=== PATIENT | female | born 1995 | race Caucasian/White ===

== ENCOUNTER 2017-04-02 17:45 | Emergency (ER) | payer SELFPAY ==
[2017-04-02 19:26] VITALS: BMI 23.3
[2017-04-02 20:15] LABS: RBC URINE 3 /hpf (0-3); URINE BACTERIA OCC (<OCC); URINE BILIRUBIN NEGATIVE (NEGATIVE); URINE BLOOD NEGATIVE (NEGATIVE); URINE COLOR YELLOW (YELLOW); URINE GLUCOSE (UA) NEG (Normal); URINE KETONE NEGATIVE (NEGATIVE); URINE LEUKOCYTE ESTERASE SMALL Leu/uL (Negative); URINE PROTEIN NEGATIVE (NEGATIVE); URINE UROBILINOGEN 0.2-1.0 mg/dL (0.2-1.0); WBC URINE 6 /hpf (0-5)
--- NOTE | 2017-04-02 23:06 | OBHP ---
Datetime: 04/02/2017 19:09 IP Adm Impression: , intrauterine ; No Active Labor IP Chief Complaint Other: Abdominal discomfort IP Admit Plan: Observation/Evaluation Admit Comment, IP Provider: 21 yo female at 28.3w gestation with EVELIN on 06/22/16 presents with complaints of lower abdominal "tightness" starting last night. Pt states she felt her lower abdomen f elt tight last night and lasted for 2 hours resolving spotaneosly. She felt the tightness again this morning but has not felt it since. Patient rates discomfort 2/10 in severity, denies n/v/d, back pain , dysuria, fever, vaginal bleeding, loss of fluid, contractions. Reports good movement. Pt stat es she traveled here from [facility] 20 days ago and is planning to have her baby in [facility]. Care: Recieving care from her MD in [facility]. care labs unremarkable. Last U/S reports appriopriate growth and anatomy, BPP 8/8, normal CORY, cervical canal length normal and closed. ObsHx: denies Medical Hx: denies Surgical Hx: denies Meds: PNV Allergies: Denies Triage Vital Signs: 108/64, 98 FHR: 140's, moderate variability, accelerations Physical Exam: General: Appears comfortable, NAD Cardio: RRR, no murmurs Resp: Clear to asucultation BL Abdomen: Gravid, NT, no CVA tenderness Extremities: No pedal edema Assessment: IUP at 28.3 wks gestation, no signs of active labor presenting with mild lower abdomin al discomfort. Currently denies any symptoms. Reassuring FHT and maternal vital signs stable. Plan: Observe, continuous monitoring and maternal vital signs. f/u Urinaylsis Discussed case with OB Attending Dr. Vinh Harp, PGY1 Addendum: I saw and examined patient presentation. Both maternal and well-being reassuring at this rommel e. Patient discharged home with labor precautions. All patient questions answered. Pelvic Type - PN: Adequate Extremities - PN: Normal Abdomen - PN: Normal Back - PN: Normal Breast - PN: Normal Lungs - PN: Normal Heart - PN: Normal Thyroid - PN: Normal Neurologic - PN: Normal HEENT - PN: Normal General - PN: Normal Contraction Comments Provider: none EGA AdmitDate IP: 28.3 Vital Signs Provider: Reviewed; Within Normal Limits IP Chief Complaint: Other Dilatation, Provider: 0 Effacement, Provider: 0 Station, Provider: -4 Genitourinary Exam: Normal DTRs - PN: Normal
[2017-04-03 03:22] VITALS: BP 105/57; PULSE 111; RESP 18; TEMP 98
== END 2017-04-02 22:50 | disposition home or self-care (01) ==
LOC: H.EROB2 17:45
DX: O47.03 False labor before 37 completed weeks of gestation, third trimester (principal); Z3A.28 28 weeks gestation of pregnancy; O26.93 Pregnancy related conditions, unspecified, third trimester; R10.2 Pelvic and perineal pain

== ENCOUNTER 2017-04-16 12:56 | Emergency (ER) | payer SELFPAY ==
[2017-04-16 13:31] VITALS: BMI 23.1
[2017-04-16] MEDS ORDERED: Lactated Ringer's 1,000 ML IV SCH (14:30)
[2017-04-16 14:46] LABS: HEMATOCRIT 35.9 % (34.0-47.0); MEAN CELL VOLUME 80.9 fl (81.0-99.0); MEAN CORPUSCULAR HEMOGLOBIN 27.2 pg (27.0-31.0); MEAN CORPUSCULAR HGB CONC 33.6 g/dL (33.0-37.0); RED CELL DISTRIBUTION WIDTH 15.2 % (11.5-14.5); WHITE BLOOD COUNT 8.6 K/uL (4.8-10.8)
[2017-04-16 15:03] LABS: ALKALINE PHOSPHATASE 119 U/L (38-126); ALT/SGPT 38 U/L (9-52); AST/SGOT 25 U/L (14-36); BILIRUBIN,TOTAL 0.3 mg/dl (0.2-1.3); BLOOD UREA NITROGEN 3 mg/dl (7-17); CALCIUM 9.5 mg/dL (8.4-10.2); CARBON DIOXIDE 24 mmol/L (22-30); CHLORIDE 104 mmol/L (98-107); GFR AFRICAN-AMERICAN > 60; GLUCOSE,RANDOM 88 mg/dL (65-105); POTASSIUM 4.1 MMOL/L (3.6-5.0); SODIUM 138 mmol/l (132-148); TOTAL PROTEIN 7.5 G/DL (6.3-8.2)
[2017-04-16 15:04] LABS: ALB/GLOB RATIO 1.1 (1.0-2.1)
[2017-04-16 20:02] VITALS: BP 111/69; PULSE 98; RESP 16; TEMP 98.2; O2SAT 100
--- NOTE | 2017-04-17 02:44 | OBDCSUM ---
Datetime: 04/16/2017 15:35 Discharged to, Provider: Home Follow up at, Provider: Disch Instr Activity: Normal activity Disch Instr Diet: Regular Discharge Time: 04/16/2017 15:35 Follow up in weeks, Provider: 04/25/2017 Disch Activity Restrictions: No sexual activity; Nothing in vagina - [place], tampons, douche Discharge Comment, Provider: Bridgette nails Discharge Diagnosis Prov Other: Nauea vomiting in preg 31w
--- NOTE | 2017-04-17 02:45 | OBHP ---
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 PAtient states she has had nausea and vomiting throughout he r , and was taking a medication she was given in [place]: doxylamine succinate-pyridoxine hydr ochloride (generic for Diclegis), which has helped allerviate her symptoms. She ran out of the medica tion about 1 week ago, and has had persistent nausea and vomiting since 3 days ago. She reports good movement. Denies vaginal bleeding, contractions, or continuous loss of fluid. Patient is from [place], started care there, then continued care in [facility] before coming to the [place]. She has some u/s reports with her which were used to calculate her GA. Report from 02/24 states anterior placenta, no previa. Has first appt at [facility] on 04/25. OBHX: none, this is her first Med hx: denies Surg hx: denies Surg hx: denies Social hx: denies tobacco, alcohol, drug use Meds: PNV, generic for Diclegis Allergies: NKDA ROS: denies chest pain, shortness of breath, urinary symptoms. Has nausea, vomitting, occasional h eadaches. PE: Gen: alert, oriented CV: RRR Resp: normal respiratory effort Abdomen: gravid Extremities: no edema Assessment: 21 yo at 31w GA with vomiting during . No signs of labor. Plan: 1 liter LR bolus, CMP, CBC, 4mg zofran Reassess after labwork Re-evaluated at 3 pm CBC, CMP wnl Plan: D/c home with prescription for zofran. labor precautions. Encourage to attend schedu led visit at [facility]. Case discussed with Dr. Quintin kitchenPGY1. OB Hospitalist note: With PGY1, I saw and examined this patient...agree with note. MAHNDO Pelvic Type - PN: Not Done Extremities - PN: Normal Abdomen - PN: Normal Back - PN: Normal Breast - PN: Not Done Lungs - PN: Normal Heart - PN: Normal Thyroid - PN: Not Done Neurologic - PN: Normal HEENT - PN: Normal General - PN: Normal FHR - Baseline A Provider: 160 Gestation - Est Wks by US: 31.0 EGA AdmitDate IP: 30.3 Vital Signs Provider: Reviewed; Within Normal Limits IP Chief Complaint: Other NICHD Variability Prov Fetus A: Moderate 6-25bpm NICHD Accel Fetus A IP Provider: [id number] FHR Category Provider Fetus A: Category I NICHD Decel Fetus A IP Provider: None Genitourinary Exam: Not Done DTRs - PN: Not Done
== END 2017-04-16 15:35 | disposition home or self-care (01) ==
LOC: H.EROB2 12:56
DX: O21.0 Mild hyperemesis gravidarum (principal); O47.03 False labor before 37 completed weeks of gestation, third trimester; Z3A.30 30 weeks gestation of pregnancy
CPT/HCPCS: 80053; 85027; 96374; 99283; J2405; J7120